=== PATIENT | male | born 1975 | race Caucasian/White ===

== ENCOUNTER 2020-10-12 16:43 | Emergency (ER) | payer MEDICAID ==
[~2020-10-12] VITALS: Ht 177.8 cm; Wt 70.0 kg
[2020-10-12] MEDS ORDERED: IBUPROFEN 400MG TABLET PO ONE (18:15)
[2020-10-12] MEDS ORDERED: ACETAMINOPHEN 325MG TABLET PO ONE (18:15)
[2020-10-12 18:44] VITALS: BP 135/87
== END 2020-10-12 18:46 | disposition home or self-care (01) ==
LOC: ER 16:43
DX: G44.209 Tension-type headache, unspecified, not intractable (principal)
CPT/HCPCS: 99283